=== PATIENT | male | born 1990 | race Caucasian/White ===

== ENCOUNTER 2021-05-29 09:28 | Emergency (ER) | payer OTHER ==
[2021-05-29] MEDS ORDERED: Ondansetron ODT 4 MG TAB ONE (10:30)
[2021-05-29] MEDS ORDERED: Ibuprofen 800 MG TAB ONE (10:30)
[2021-05-29] MEDS ORDERED: Ondansetron ODT 4 MG TAB PO SCH (10:45)
[2021-05-29] MEDS ORDERED: Ibuprofen 800 MG TAB PO SCH (10:45)
== END 2021-05-29 10:38 | disposition home or self-care (01) ==
LOC: MADERS 09:28
DX: S09.90XA Unspecified injury of head, initial encounter (principal); W22.8XXA Striking against or struck by other objects, initial encounter
CPT/HCPCS: 99283; Q0162